=== PATIENT | male | born 1945 | race Caucasian/White ===

== ENCOUNTER → 2017-01-26 | Outpatient (CLI) | payer MEDICARE, BC, OTHER ==
[~2017-01-26] MED LIST: /DULO30CA OR; /ROPI1TA OR; ASPI81TA45 OR; CARB10TAXR OR; DYAZ37.5 OR; GLIM1TAB OR; METF500T4 OR; MOTRIN PO; NAPR250T PO; NASONEX; [UNRECOGNIZED DRUG - OTHER] PO; [UNRECOGNIZED DRUG - OTHER] PO; victoza INJ
--- NOTE | 2017-01-26 15:17 | REP ---
Left lower extremity duplex venous ultrasound with reflux evaluation: History: Venous insufficiency, question DVT and reflux. Findings: The deep veins are anechoic and fully compressible on two-dimensional scanning in the left lower extremity from the groin to the popliteal fossa. The femoral vein segment is duplicated in this patient. Color flow and spectral Doppler interrogation are unremarkable. There is no evidence of deep vein thrombosis. No reflux is seen in the superficial or deep system on reflex portion of the exam. The greater saphenous vein measures 6.9 mm in AP dimension at the saphenofemoral junction, 4.1 mm in AP dimension at midthigh level, and 4.0 mm in AP dimension at the level of the knee. The lesser saphenous vein measures 4.9 mm in AP dimension. Impression: No evidence of DVT. No reflux seen in the left lower extremity veins. Signed by Tk Reza MD 01/26/2017 05:39 P
== END ==
LOC: M RAD 10:35
PROVIDERS: ATTEND Surgery
DX: I87.312 Chronic venous hypertension (idiopathic) with ulcer of left lower extremity (principal)

== ENCOUNTER → 2017-01-31 | Outpatient (CLI) | payer MEDICARE, BC, OTHER ==
--- NOTE | 2017-01-31 11:31 | REP ---
RIGHT LOWER EXTREMITY DUPLEX DOPPLER VENOUS ULTRASOUND WITH EVALUATION FOR VENOUS REFLUX: Real-time compression and duplex Doppler interrogation of the right lower extremity deep vein system is performed. The right common, superficial femoral and popliteal veins are fully compressible with transducer pressure and demonstrate normal spontaneous and phasic flow without evidence of deep venous thrombosis. Evaluation for venous reflux is performed. No reflux was seen in the common femoral vein. There is no evidence of an anterior accessory greater saphenous vein. There is reflux in the greater saphenous vein at the saphenofemoral junction with duration of 3.5 seconds, AP diameter of that vessel 4 mm. There is reflux in the greater saphenous vein at the mid thigh with a duration of 5.0 seconds, AP diameter 5 mm. No reflux is seen in the greater saphenous vein at the level of the knee, AP diameter of that vessel 5 mm. No reflux was seen in the superficial femoral vein, popliteal vein or lesser saphenous vein. Lesser saphenous vein diameter is 2 mm. Perforating venous structures are seen communicating with the greater saphenous vein at the mid thigh level, with no reflux seen in these perforating venous structures. Signed by Rogers Dash MD 01/31/2017 03:30 P
== END ==
LOC: M RAD 09:24
PROVIDERS: ATTEND Surgery
DX: I87.311 Chronic venous hypertension (idiopathic) with ulcer of right lower extremity (principal)

== ENCOUNTER → 2017-03-29 | Outpatient (REF) | payer MEDICARE, OTHER ==
[2017-03-29 12:48] LABS: MEAN CORPUSCULAR HEMOGLOBIN 30.1 pg (27.0-33.0); MEAN CORPUSCULAR HGB CONC 33.5 g/dl (32.0-36.5); MEAN CORPUSCULAR VOLUME 89.9 fl (80.0-96.0); WHITE BLOOD COUNT 7.8 K/mm3 (4.0-10.0)
[2017-03-29 13:00] LABS: VITAMIN B12 LEVEL 716 PG/ML (247-911)
[2017-03-29 13:02] LABS: FOLATE > 24.0 NG/ML (>5.4)
[2017-03-29 13:06] LABS: ALBUMIN 3.7 GM/DL (3.2-5.2); ALKALINE PHOSPHATASE 118 U/L (45-117); ALT/SGPT 38 U/L (12-78); ANION GAP 7 MEQ/L (8-16); AST/SGOT 17 U/L (15-37); BILIRUBIN,TOTAL 0.2 MG/DL (0.2-1.0); BLOOD UREA NITROGEN 15 MG/DL (7-18); CARBON DIOXIDE LEVEL 29 MEQ/L (21-32); CHLORIDE LEVEL 103 MEQ/L (98-107); CHOLESTEROL LEVEL 171 MG/DL (<200); CREATININE FOR GFR 1.25 MG/DL (0.70-1.30); FERRITIN 11 NG/ML (26-388); GLOMERULAR FILTRATION RATE > 60.0 (>42); GLUCOSE, FASTING 322 MG/DL (83-110); PERCENT SATURATION 18.5 % (19.7-37.4); POTASSIUM SERUM 3.9 MEQ/L (3.5-5.1); SODIUM LEVEL 139 MEQ/L (136-145); TOTAL IRON BINDING CAPACITY 405 UG/DL (250-450); TOTAL PROTEIN 7.4 GM/DL (6.4-8.2); TRIGLYCERIDES LEVEL 118 MG/DL (<150)
== END ==
LOC: M SFHCADAM 09:16
PROVIDERS: ATTEND Family Medicine
DX: G47.33 Obstructive sleep apnea (adult) (pediatric) (principal); E11.628 Type 2 diabetes mellitus with other skin complications; E78.4 Other hyperlipidemia; Z98.84 Bariatric surgery status; Z79.899 Other long term (current) drug therapy
CPT/HCPCS: 80053; 80061; 82043; 82306; 82607; 82728; 82746; 83036; 83550; 85027; 90670; G0009; G0463

== ENCOUNTER → 2017-04-26 | Outpatient (CLI) | payer MEDICARE, OTHER ==
--- NOTE | 2017-04-26 11:58 | REP ---
RIGHT SHOULDER, FOUR VIEWS: HISTORY: Shoulder pain. There is no acute fracture or dislocation. There is narrowing of the acromioclavicular joint with associated osteophyte formation. A calcified density is present along the superolateral aspect of the head of the humerus. This represents ligamentous or tendon calcification. IMPRESSION: Degenerative change as described above. Signed by Silas Ortiz MD 04/26/2017 12:07 P
== END ==
LOC: M ADAMS 09:34
PROVIDERS: ATTEND Family Medicine
DX: M19.011 Primary osteoarthritis, right shoulder (principal)
CPT/HCPCS: 73030; G0463

== ENCOUNTER → 2017-07-04 | Outpatient (REF) | payer MEDICARE, OTHER ==
[2017-07-04 11:57] LABS: ANION GAP 8 MEQ/L (8-16); BLOOD UREA NITROGEN 16 MG/DL (7-18); CALCIUM LEVEL 9.3 MG/DL (8.8-10.2); CARBON DIOXIDE LEVEL 27 MEQ/L (21-32); CHLORIDE LEVEL 107 MEQ/L (98-107); CREATININE FOR GFR 1.26 MG/DL (0.70-1.30); GLOMERULAR FILTRATION RATE > 60.0 (>42); GLUCOSE, FASTING 163 MG/DL (83-110); POTASSIUM SERUM 4.5 MEQ/L (3.5-5.1); SODIUM LEVEL 142 MEQ/L (136-145)
== END ==
LOC: M SFHCCLAY 08:48
PROVIDERS: ATTEND Family Medicine
DX: E61.1 Iron deficiency (principal); Z79.899 Other long term (current) drug therapy

== ENCOUNTER → 2017-10-02 | Outpatient (REF) | payer MEDICARE, OTHER ==
[2017-10-02 19:36] LABS: BASO # 0.1 10^3/uL (0.0-0.2); BASO % 0.9 % (0.0-1.0); EOS # 0.7 10^3/uL (0.0-0.50); EOS % 8.4 % (0.0-3.0); IMMATURE GRANULOCYTE % 0.4 % (0-0); LYMPH # 1.5 10^3/uL (1.5-4.5); LYMPH % 17.4 % (24.0-44.0); MEAN CORPUSCULAR HEMOGLOBIN 30.5 pg (27.0-33.0); MEAN CORPUSCULAR HGB CONC 33.5 g/dl (32.0-36.5); MEAN CORPUSCULAR VOLUME 91.2 fl (80.0-96.0); MONO # 0.8 10^3/uL (0.0-0.8); MONO % 9.4 % (0.0-5.0); NEUTROPHILS # 5.4 10^3/uL (1.8-7.7); NEUTROPHILS % 63.5 % (36.0-66.0); PLATELET COUNT, AUTOMATED 191 10^3/uL (150-450); RED CELL DISTRIBUTION WIDTH 13.3 % (11.5-14.5); WHITE BLOOD COUNT 8.6 10^3/uL (4.0-10.0)
[2017-10-02 19:53] LABS: ALBUMIN 4.1 GM/DL (3.2-5.2); ALBUMIN/GLOBULIN RATIO 1.14 (1.00-1.93); ALKALINE PHOSPHATASE 89 U/L (45-117); ALT/SGPT 35 U/L (12-78); ANION GAP 5 MEQ/L (8-16); AST/SGOT 15 U/L (7-37); BILIRUBIN,TOTAL 0.3 MG/DL (0.2-1.0); BLOOD UREA NITROGEN 18 MG/DL (7-18); CALCIUM LEVEL 9.1 MG/DL (8.8-10.2); CARBON DIOXIDE LEVEL 29 MEQ/L (21-32); CHLORIDE LEVEL 106 MEQ/L (98-107); CREATININE FOR GFR 1.15 MG/DL (0.70-1.30); GLOMERULAR FILTRATION RATE > 60.0 (>42); GLUCOSE, FASTING 216 MG/DL (83-110); POTASSIUM SERUM 4.8 MEQ/L (3.5-5.1); SODIUM LEVEL 140 MEQ/L (136-145); TOTAL PROTEIN 7.7 GM/DL (6.4-8.2)
== END ==
LOC: M SFHCADAM 11:49
PROVIDERS: ATTEND Family Medicine
DX: R31.9 Hematuria, unspecified (principal); R19.7 Diarrhea, unspecified
CPT/HCPCS: 80053; 81001; 85025; 87086; G0463

== ENCOUNTER → 2017-10-07 | Outpatient (REF) | payer MEDICARE, OTHER | LOC: M SFHCADAM 15:35 | PROVIDERS: ATTEND Family Medicine | DX: R19.7 Diarrhea, unspecified (principal) ==

== ENCOUNTER → 2017-10-09 | Outpatient (REF) | payer MEDICARE, OTHER | LOC: M SFHCADAM 20:59 | PROVIDERS: ATTEND Family Medicine | DX: R31.9 Hematuria, unspecified (principal); R19.7 Diarrhea, unspecified ==

== ENCOUNTER → 2017-10-24 | Outpatient (REF) | payer MEDICARE, OTHER ==
[2017-10-24 20:30] LABS: CALCIUM LEVEL 8.7 MG/DL (8.8-10.2); CREATININE FOR GFR 1.44 MG/DL (0.70-1.30); GLOMERULAR FILTRATION RATE 51.6 (>42); POTASSIUM SERUM 4.9 MEQ/L (3.5-5.1)
== END ==
LOC: M SFHCADAM 14:06
PROVIDERS: ATTEND Physician Assistant
DX: E11.628 Type 2 diabetes mellitus with other skin complications (principal); R31.9 Hematuria, unspecified; Z12.11 Encounter for screening for malignant neoplasm of colon

== ENCOUNTER → 2017-10-26 | Outpatient (CLI) | payer MEDICARE, BC ==
--- NOTE | 2017-10-26 11:37 | REP ---
RENAL ULTRASOUND: Real-time sonographic evaluation of the kidneys performed. The kidneys are normal in size and echotexture, right kidney measuring 14.6 x 7.7 x 6.9 cm and left kidney 13.2 x 7.0 x 5.5 cm. There are multiple bilateral renal cysts. There is no hydronephrosis. Largest cyst on the right is inferior and measures 8.9 x 5.6 x 7.3 cm. There is an adjacent cyst measuring 7.9 x 6.2 x 5.8 cm which contains a calcification which measures 1 cm. Several other smaller cysts are seen in the right kidney. Largest cysts of the left kidney are superiorly 5.4 x 4.1 x 4.3 cm and inferiorly 4.0 x 3.9 x 4.0 cm. Several other smaller cysts are seen. Incidental note is made of gallstones in the gallbladder. IMPRESSION: No hydronephrosis. Multiple bilateral renal cysts. Gallstones incidentally noted in the gallbladder.
== END ==
LOC: M WHC 08:42
PROVIDERS: ATTEND Physician Assistant
DX: N17.9 Acute kidney failure, unspecified (principal); N28.1 Cyst of kidney, acquired

== ENCOUNTER → 2017-11-02 | Outpatient (REF) | payer MEDICARE, OTHER | LOC: M SMT 17:09 | PROVIDERS: ATTEND Nurse Practitioner Family | DX: R31.0 Gross hematuria (principal) ==

== ENCOUNTER → 2017-11-09 | Outpatient (CLI) | payer MEDICARE, BC, OTHER ==
[~2017-11-09] MED LIST changes: -/DULO30CA OR; -/ROPI1TA OR; -ASPI81TA45 OR; -CARB10TAXR OR; -DYAZ37.5 OR; -GLIM1TAB OR; +ISOVUE-370 76% 100ML VIAL (Q9967) As Ordered; -METF500T4 OR; -MOTRIN PO; -NAPR250T PO; -NASONEX; -[UNRECOGNIZED DRUG - OTHER] PO; -[UNRECOGNIZED DRUG - OTHER] PO; -victoza INJ
== END ==
LOC: M RAD 12:02
DX: R31.9 Hematuria, unspecified (principal)
CPT/HCPCS: Q9967

== ENCOUNTER → 2017-12-07 | Outpatient (CLI) | payer MEDICARE, BC, OTHER ==
[2017-12-07 14:49] LABS: HEMATOCRIT 44.6 % (42.0-52.0); HEMOGLOBIN 15.1 g/dl (14.0-18.0); MEAN CORPUSCULAR HEMOGLOBIN 30.4 pg (27.0-33.0); MEAN CORPUSCULAR HGB CONC 33.9 g/dl (32.0-36.5); MEAN CORPUSCULAR VOLUME 89.9 fl (80.0-96.0); PLATELET COUNT, AUTOMATED 177 10^3/uL (150-450); RED BLOOD COUNT 4.96 10^6/uL (4.30-6.10); RED CELL DISTRIBUTION WIDTH 12.6 % (11.5-14.5); WHITE BLOOD COUNT 9.3 10^3/uL (4.0-10.0)
[2017-12-07 14:58] LABS: APPEARANCE, URINE HAZY (CLEAR); BACTERIA, URINE AUTO NEGATIVE (NEGATIVE); BILIRUBIN, URINE AUTO NEGATIVE (NEGATIVE); BLOOD, URINE BLOOD 1+ (NEGATIVE); COLOR, URINE YELLOW (YELLOW); GLUCOSE, URINE (UA) AUTO 3+ mg/dL (NEGATIVE); KETONE, URINE AUTO TRACE mg/dL (NEGATIVE); LEUKOCYTE ESTERASE, URINE AUTO 1+ (NEGATIVE); NITRITE, URINE AUTO NEGATIVE (NEGATIVE); PROTEIN, URINE AUTO NEGATIVE (NEGATIVE); RBC, URINE AUTO 1 /HPF (0-3); SPECIFIC GRAVITY URINE AUTO 1.017 (1.002-1.035); SQUAMOUS EPITHELIAL CELL UR AU 0 /HPF (0-6); UROBILINOGEN, URINE AUTO 0.2 mg/dL (0.0-2.0); WBC, URINE AUTO 5 /HPF (0-3)
[2017-12-07 15:03] LABS: INR 0.98; PROTHROMBIN TIME 13.1 SECONDS (12.4-14.5)
[2017-12-07 15:04] LABS: PARTIAL THROMBOPLASTIN TIME 33.6 SECONDS (26.8-37.9)
[2017-12-07 15:55] LABS: ANION GAP 6 MEQ/L (8-16); BLOOD UREA NITROGEN 19 MG/DL (7-18); CALCIUM LEVEL 8.6 MG/DL (8.8-10.2); CARBON DIOXIDE LEVEL 30 MEQ/L (21-32); CHLORIDE LEVEL 106 MEQ/L (98-107); CREATININE FOR GFR 1.19 MG/DL (0.70-1.30); GLOMERULAR FILTRATION RATE > 60.0 (>42); GLUCOSE, FASTING 205 MG/DL (70-100); POTASSIUM SERUM 4.3 MEQ/L (3.5-5.1); PSA SCREENING 0.68 NG/ML (< 4.0); SODIUM LEVEL 142 MEQ/L (136-145)
== END ==
LOC: M SMT 13:03
DX: Z01.818 Encounter for other preprocedural examination (principal); N20.0 Calculus of kidney; Z12.5 Encounter for screening for malignant neoplasm of prostate; R91.8 Other nonspecific abnormal finding of lung field
CPT/HCPCS: 80048

== ENCOUNTER → 2017-12-11 | Outpatient (CLI) | payer MEDICARE, BC, OTHER | LOC: M RAD 17:29 | DX: R91.8 Other nonspecific abnormal finding of lung field (principal) | CPT/HCPCS: Q9967 ==

== ENCOUNTER 2017-12-28 06:14 | Day surgery (SDC) | payer MEDICARE, BC, OTHER ==
[2017-12-28] MEDS ORDERED: LIDOCAINE 1% MDV 20ML VIAL SQ (06:45)
[2017-12-28] MEDS: LR 1,000 ML IV (07:10)
[2017-12-28] MEDS ORDERED: PROPOFOL 200 MG/20 ML VIAL As Ordered ×2 (07:14→08:25)
[2017-12-28] MEDS ORDERED: MIDAZOLAM INJ 2 MG/2 ML VIAL (J2250) As Ordered (07:14)
[2017-12-28] MEDS ORDERED: LIDOCAINE 2% INJ 100 MG/5 ML SDV (FOR ANES.) As Ordered (07:14)
[2017-12-28] MEDS ORDERED: fentaNYL 100 MCG/2 ML INJECTION (J3010) As Ordered (07:15)
[2017-12-28 07:18] LABS: BEDSIDE GLUCOSE 129 MG/DL (83-110)
[2017-12-28] MEDS: CEFAZOLIN SOD 1 GM in APPROPRIATE DILUENT 1 EA IV (07:31)
[2017-12-28] MEDS ORDERED: LR 1,000 ML IV (09:15)
[2017-12-28] MEDS ORDERED: PERCOCET 5MG/325MG TAB PO (09:15)
[2017-12-28] MEDS ORDERED: ONDANSETRON 4MG/2ML VIAL (J2405) IV (09:15)
[2017-12-28] MEDS ORDERED: fentaNYL 100 MCG/2 ML INJECTION (J3010) IV (09:15)
[2017-12-28] MEDS ORDERED: HYDROmorphone HCL 1 MG/ML SYRINGE (J1170) IV (09:15)
== END 2017-12-28 09:30 | disposition home or self-care (01) ==
LOC: M SDC 06:14
DX: N20.0 Calculus of kidney (principal); I10 Essential (primary) hypertension; E11.40 Type 2 diabetes mellitus with diabetic neuropathy, unspecified; E11.628 Type 2 diabetes mellitus with other skin complications; I87.311 Chronic venous hypertension (idiopathic) with ulcer of right lower extremity; I87.2 Venous insufficiency (chronic) (peripheral); G47.33 Obstructive sleep apnea (adult) (pediatric); G25.81 Restless legs syndrome; G63 Polyneuropathy in diseases classified elsewhere; E78.4 Other hyperlipidemia; E29.1 Testicular hypofunction; M12.9 Arthropathy, unspecified; R06.83 Snoring; Z91.013 Allergy to seafood; Z91.048 Other nonmedicinal substance allergy status; Z79.899 Other long term (current) drug therapy; Z79.82 Long term (current) use of aspirin; Z79.4 Long term (current) use of insulin; Z79.84 Long term (current) use of oral hypoglycemic drugs; Z98.84 Bariatric surgery status
CPT/HCPCS: 50590

== ENCOUNTER → 2018-01-19 | Outpatient (CLI) | payer MEDICARE, BC, OTHER | LOC: M SMT 09:13 | DX: N20.0 Calculus of kidney (principal) | CPT/HCPCS: 82360 ==

== ENCOUNTER → 2018-02-07 | Outpatient (REF) | payer MEDICARE, OTHER ==
[2018-02-07 19:45] LABS: HEMATOCRIT 45.2 % (42.0-52.0); HEMOGLOBIN 14.9 g/dl (14.0-18.0); MEAN CORPUSCULAR HEMOGLOBIN 30.2 pg (27.0-33.0); MEAN CORPUSCULAR VOLUME 91.7 fl (80.0-96.0); PLATELET COUNT, AUTOMATED 202 10^3/uL (150-450); RED BLOOD COUNT 4.93 10^6/uL (4.30-6.10); RED CELL DISTRIBUTION WIDTH 13.4 % (11.5-14.5); WHITE BLOOD COUNT 6.7 10^3/uL (4.0-10.0)
[2018-02-07 19:57] LABS: ALBUMIN 3.7 GM/DL (3.2-5.2); ALBUMIN/GLOBULIN RATIO 1.09 (1.00-1.93); ALKALINE PHOSPHATASE 84 U/L (45-117); ALT/SGPT 30 U/L (12-78); ANION GAP 5 MEQ/L (8-16); AST/SGOT 21 U/L (7-37); BILIRUBIN,TOTAL 0.4 MG/DL (0.2-1.0); BLOOD UREA NITROGEN 21 MG/DL (7-18); CALCIUM LEVEL 8.9 MG/DL (8.8-10.2); CARBON DIOXIDE LEVEL 29 MEQ/L (21-32); CHLORIDE LEVEL 106 MEQ/L (98-107); CREATININE FOR GFR 1.33 MG/DL (0.70-1.30); GLOMERULAR FILTRATION RATE 56.4 (>42); GLUCOSE, FASTING 246 MG/DL (70-100); POTASSIUM SERUM 4.8 MEQ/L (3.5-5.1); SODIUM LEVEL 140 MEQ/L (136-145); TOTAL PROTEIN 7.1 GM/DL (6.4-8.2)
[2018-02-07 20:16] LABS: ESTIMATED AVERAGE GLUCOSE 192 MG/DL (60-110); HEMOGLOBIN A1c 8.3 %
== END ==
LOC: M SFHCADAM 14:14
DX: E11.628 Type 2 diabetes mellitus with other skin complications (principal); Z12.11 Encounter for screening for malignant neoplasm of colon
CPT/HCPCS: 80053

== ENCOUNTER → 2018-05-30 | Outpatient (REF) | payer MEDICARE, OTHER ==
[2018-05-30 12:36] LABS: HEMATOCRIT 44.3 % (42.0-52.0); HEMOGLOBIN 15.2 g/dl (13.5-17.5); MEAN CORPUSCULAR HGB CONC 34.3 g/dl (32.0-36.5); MEAN CORPUSCULAR VOLUME 90.4 fl (80.0-96.0); PLATELET COUNT, AUTOMATED 186 10^3/uL (150-450); RED CELL DISTRIBUTION WIDTH 12.6 % (11.5-14.5); WHITE BLOOD COUNT 8.7 10^3/uL (4.0-10.0)
[2018-05-30 13:01] LABS: ALBUMIN 3.8 GM/DL (3.2-5.2); ALBUMIN/GLOBULIN RATIO 1.06 (1.00-1.93); ALKALINE PHOSPHATASE 96 U/L (45-117); ALT/SGPT 38 U/L (12-78); ANION GAP 9 MEQ/L (8-16); AST/SGOT 22 U/L (7-37); BILIRUBIN,TOTAL 0.4 MG/DL (0.2-1.0); BLOOD UREA NITROGEN 22 MG/DL (7-18); CALCIUM LEVEL 8.8 MG/DL (8.8-10.2); CARBON DIOXIDE LEVEL 29 MEQ/L (21-32); CHLORIDE LEVEL 106 MEQ/L (98-107); CHOLESTEROL LEVEL 160 MG/DL (<200); CHOLESTEROL RISK RATIO 3.018 (<5); CREATININE FOR GFR 1.26 MG/DL (0.70-1.30); FERRITIN 34 NG/ML (26-388); GLOMERULAR FILTRATION RATE > 60.0 (>42); GLUCOSE, FASTING 89 MG/DL (70-100); HDL CHOLESTEROL 53 MG/DL (>40); IRON (FE) 143 UG/DL (65-175); LDL CHOLESTEROL 85.6 MG/DL (<100); NON-HDL-C 107 MG/DL; PERCENT SATURATION 41.6 % (19.7-50.0); SODIUM LEVEL 144 MEQ/L (136-145); TOTAL IRON BINDING CAPACITY 344 UG/DL (250-450); TOTAL PROTEIN 7.4 GM/DL (6.4-8.2); TRIGLYCERIDES LEVEL 107 MG/DL (<150)
[2018-05-30 13:06] LABS: MAU/CREAT RATIO 160.7 MCG/MG (0.0-30.0)
[2018-05-30 13:25] LABS: TOTAL 25(OH) VITAMIN D 39.4 NG/ML (30.0-100.0); VITAMIN B12 LEVEL 1317 PG/ML (247-911)
[2018-05-30 13:29] LABS: ESTIMATED AVERAGE GLUCOSE 197 MG/DL (60-110); HEMOGLOBIN A1c 8.5 %
== END ==
LOC: M SFHCADAM 09:42
DX: Z98.84 Bariatric surgery status (principal); G47.33 Obstructive sleep apnea (adult) (pediatric); E11.628 Type 2 diabetes mellitus with other skin complications; E78.4 Other hyperlipidemia; Z68.41 Body mass index [BMI] 40.0-44.9, adult; Z23 Encounter for immunization
CPT/HCPCS: 83550

== ENCOUNTER → 2019-07-12 | Outpatient (REF) | payer MEDICARE, OTHER ==
[~2019-07-12] MED LIST changes: +ASPI81TA26 PO; +ASPI81TA45 OR; +ATOR1TAB21 PO; +B121000T PO; +CALC1TAB42 PO; +CARB1TAB20 PO; +CENT1TAB20 PO; +CYMB1CAP5 PO; +DYAZ37.5 OR; +FURO20TA2 PO; +GLIM1TAB OR; +INSULANT SC; +IRON27TA2 PO; -ISOVUE-370 76% 100ML VIAL (Q9967) As Ordered; +JARD1TAB3 PO; +METF10004 PO; +METF500T4 OR; +MOTRIN PO; +NAPR250T PO; +NASONEX; +REQU1TAB16 OR; +TEGR100T3 PO; +TRAZ-163 PO; +[UNRECOGNIZED DRUG - CODE] PO; +[UNRECOGNIZED DRUG - CODE] TD; +[UNRECOGNIZED DRUG - OTHER] PO; +[UNRECOGNIZED DRUG - OTHER] PO; +[UNRECOGNIZED DRUG - OTHER] PO; +victoza INJ
[2019-07-12 19:47] LABS: HEMATOCRIT 45.7 % (42.0-52.0); HEMOGLOBIN 15.7 g/dl (13.5-17.5); MEAN CORPUSCULAR HEMOGLOBIN 31.4 pg (27.0-33.0); MEAN CORPUSCULAR HGB CONC 34.4 g/dl (32.0-36.5); MEAN CORPUSCULAR VOLUME 91.4 fl (80.0-96.0); PLATELET COUNT, AUTOMATED 175 10^3/uL (150-450); WHITE BLOOD COUNT 8.5 10^3/uL (4.0-10.0)
[2019-07-12 20:09] LABS: ALBUMIN 3.8 GM/DL (3.2-5.2); ALT/SGPT 34 U/L (12-78); BILIRUBIN,TOTAL 0.3 MG/DL (0.2-1.0); BLOOD UREA NITROGEN 27 MG/DL (7-18); CALCIUM LEVEL 8.7 MG/DL (8.8-10.2); CARBON DIOXIDE LEVEL 27 MEQ/L (21-32); CHLORIDE LEVEL 108 MEQ/L (98-107); CREATININE FOR GFR 1.22 MG/DL (0.70-1.30); FREE T4 0.75 NG/DL (0.76-1.46); GLOMERULAR FILTRATION RATE > 60.0 (>42); GLUCOSE, FASTING 190 MG/DL (70-100); MAGNESIUM LEVEL 2.2 MG/DL (1.8-2.4); SODIUM LEVEL 141 MEQ/L (136-145); TOTAL PROTEIN 7.2 GM/DL (6.4-8.2)
[2019-07-12 20:10] LABS: FOLATE 22.4 NG/ML; VITAMIN B12 LEVEL 891 PG/ML
[2019-07-12 20:34] LABS: HEMOGLOBIN A1c 10.3 %
== END ==
LOC: M SFHCADAM 16:00
PROVIDERS: ATTEND Physician Assistant
DX: R42 Dizziness and giddiness (principal); E11.628 Type 2 diabetes mellitus with other skin complications; R60.9 Edema, unspecified; R26.81 Unsteadiness on feet

== ENCOUNTER → 2019-07-26 | Outpatient (CLI) | payer MEDICARE, BC, OTHER ==
--- NOTE | 2019-07-26 12:50 | REP ---
MRI of the brain without and with contrast Indication: Vertigo. Comparison: None Technique: Multi planar multi sequence MRI of the brain was performed without and with contrast. A total of 20 ml of ProHance was administered intravenously. Findings: There is patient motion artifact which degrades image quality and decreases the sensitivity for detection of small lesions. Within this limitation, there is no abnormal enhancement. There is no restricted diffusion to suggest acute ischemia or infarction. The ventricles and sulci are symmetric. There is no intra- or extra-axial fluid collection. There is no mass effect. There is no midline shift or basal cistern effacement. The visualized flow voids are preserved. There is mild mucosal thickening of the right maxillary and frontal sinuses and bilateral ethmoid air cells. The visualized mastoid air cells are clear. There is cervical spondylosis. Impression: Patient motion artifact which degrades image quality and decreases the sensitivity for the detection of small lesions. Within this limitation, no abnormal enhancement. No acute intracranial abnormality. Mild mucosal thickening of the paranasal sinuses. Electronically Signed by Solo Otto MD 07/26/2019 12:42 P
== END ==
LOC: M PLARAD 10:06
PROVIDERS: ATTEND Physician Assistant
DX: R42 Dizziness and giddiness (principal); R26.81 Unsteadiness on feet; M47.812 Spondylosis without myelopathy or radiculopathy, cervical region; J32.0 Chronic maxillary sinusitis; J32.1 Chronic frontal sinusitis; J32.2 Chronic ethmoidal sinusitis

== ENCOUNTER → 2020-01-13 | Outpatient (CLI) | payer MEDICARE, BC, OTHER ==
[~2020-01-13] MED LIST changes: -TRAZ-163 PO; +TRAZ-257 PO
--- NOTE | 2020-01-13 11:21 | REP ---
LUMBOSACRAL SPINE SERIES: Five views of the lumbosacral spine performed and compared to a prior study of 04/12/2016. There is moderate diffuse spurring and moderate diffuse disc space narrowing at all levels with subchondral sclerosis. There is vacuum phenomenon at L4-5 and L5-S1. There is mild retrolisthesis of L2. Chronic compression deformities are again noted of L2 and L3, with the compression of L2 more significant on the left side. There is moderate right thoracolumbar curvature with a rotatory component. Posterior elements appear intact. IMPRESSION: Diffuse degenerative changes with right thoracolumbar scoliosis and compression deformity of L2 all unchanged since prior study of 04/12/2016. There is mild retrolisthesis of L2 unchanged. Electronically Signed by Rogers Dash MD 01/13/2020 01:27 P
== END ==
LOC: M WUC 10:20
PROVIDERS: ATTEND Nurse Practitioner Family
DX: M41.35 Thoracogenic scoliosis, thoracolumbar region (principal); G95.20 Unspecified cord compression

== ENCOUNTER → 2020-02-18 | Outpatient (REF) | payer MEDICARE, OTHER ==
[2020-02-18 17:07] LABS: ALBUMIN 3.8 GM/DL (3.2-5.2); BILIRUBIN,TOTAL 0.2 MG/DL (0.2-1.0); CREATININE FOR GFR 1.29 MG/DL (0.70-1.30); GLOMERULAR FILTRATION RATE 58.1 (>42); POTASSIUM SERUM 4.5 MEQ/L (3.5-5.1); TOTAL PROTEIN 7.4 GM/DL (6.4-8.2)
[2020-02-18 17:21] LABS: HEMOGLOBIN A1c 8.8 %
== END ==
LOC: M SFHCADAM 14:40
PROVIDERS: ATTEND Family Medicine
DX: I10 Essential (primary) hypertension (principal); E11.628 Type 2 diabetes mellitus with other skin complications
CPT/HCPCS: 80053; 83036; G0463

== ENCOUNTER → 2020-02-25 | Outpatient (CLI) | payer MEDICARE, BC, OTHER ==
--- NOTE | 2020-02-25 15:51 | REPVR ---
PROCEDURE INFORMATION: Exam: MR Lumbar Spine Without Contrast. Exam date and time: 02/25/2020 2:47 PM Age: 74 years old Clinical indication: Low back pain; Additional info: Disc degeneration w/ myelopathy TECHNIQUE: Imaging protocol: Multiplanar magnetic resonance images of the lumbar spine without intravenous contrast. COMPARISON: CR SPINE LS COMPLETE 01/13/2020 10:32 AM FINDINGS: Vertebrae: A right convex spinal curve is observed. There has been previous posterior unroofing at L4 and L5. There is previous left-sided wedging of L2 with no evidence of bone marrow edema. Spinal cord: The conus medullaris is normal. T12-L1: There are chronic degenerative changes at T12-L1 with mild prominence of the annulus. There is no nerve root compression. L1-L2: There is mild prominence of the annulus at L1-L2 with moderate left facet arthropathy. There is no nerve root compression. L2-L3: There is moderate disc osteophytic pathology at L2-L3 and moderate facet arthropathy with mild left foraminal compromise. There appears to be moderate subarticular stenosis with no fat in the lateral recesses on axial image 701:18. L3-L4: There is mild disc osteophytic disease at L3-L4 with moderate right facet arthropathy and foraminal compromise. There appears to be moderate right and mild left subarticular stenosis. L4-L5: There is moderate disc osteophytic disease at L4-L5 with mild caudal extrusion of the annulus. There is severe right and moderate left facet arthropathy. There is moderate right and mild left foraminal compromise. There is adequate fluid surrounding the nerve root centrally with evidence of previous unroofing. L5-S1: There is chronic disc osteophytic disease at L5-S1 greater on the right. There is moderate bilateral facet arthropathy. There is severe right and moderate left foraminal stenosis and severe bilateral subarticular stenosis on sagittal images which appears more severe on the left on axial images. Soft tissues: Unremarkable. IMPRESSION: 1. There are chronic degenerative changes at T12-L1 with mild prominence of the annulus. There is no nerve root compression. 2. There is mild prominence of the annulus at L1-L2 with moderate left facet arthropathy. There is no nerve root compression. 3. There is moderate disc osteophytic pathology at L2-L3 and moderate facet arthropathy with mild left foraminal compromise. There appears to be moderate subarticular stenosis with no fat in the lateral recesses on axial image 701:18. 4. There is mild disc osteophytic disease at L3-L4 with moderate right facet arthropathy and foraminal compromise. There appears to be moderate right and mild left subarticular stenosis. 5. There is moderate disc osteophytic disease at L4-L5 with mild caudal extrusion of the annulus. There is severe right and moderate left facet arthropathy. There is moderate right and mild left foraminal compromise. There is adequate fluid surrounding the nerve root centrally with evidence of previous unroofing. 6. There is chronic disc osteophytic disease at L5-S1 greater on the right. There is moderate bilateral facet arthropathy. There is severe right and moderate left foraminal stenosis and severe bilateral subarticular stenosis on sagittal images which appears more severe on the left on axial images. Electronically signed by: Raghu Ignacio On 02/25/2020 15:50:55 PM
== END ==
LOC: M RAD 13:27
PROVIDERS: ATTEND Family Medicine
DX: M51.05 Intervertebral disc disorders with myelopathy, thoracolumbar region (principal); M51.06 Intervertebral disc disorders with myelopathy, lumbar region; M25.78 Osteophyte, vertebrae

== ENCOUNTER → 2020-07-15 | Outpatient (REF) | payer MEDICARE, OTHER ==
[2020-07-15 14:29] LABS: BASO # 0.1 10^3/uL (0.0-0.2); BASO % 0.7 % (0.0-1.0); EOS # 0.6 10^3/uL (0.0-0.5); EOS % 7.6 % (0.0-3.0); HEMATOCRIT 47.9 % (42.0-52.0); HEMOGLOBIN 15.4 g/dl (13.5-17.5); LYMPH # 1.6 10^3/uL (1.5-5.0); LYMPH % 21.4 % (24.0-44.0); MEAN CORPUSCULAR HEMOGLOBIN 29.8 pg (27.0-33.0); MEAN CORPUSCULAR HGB CONC 32.2 g/dl (32.0-36.5); MEAN CORPUSCULAR VOLUME 92.8 fl (80.0-96.0); MONO # 0.7 10^3/uL (0.0-0.8); MONO % 9.7 % (0.0-5.0); NEUTROPHILS # 4.6 10^3/uL (1.5-8.5); NEUTROPHILS % 60.1 % (36.0-66.0); PLATELET COUNT, AUTOMATED 188 10^3/uL (150-450); RED BLOOD COUNT 5.16 10^6/uL (4.30-6.10); WHITE BLOOD COUNT 7.6 10^3/uL (4.0-10.0)
[2020-07-15 15:00] LABS: APPEARANCE, URINE CLEAR (CLEAR); BACTERIA, URINE AUTO NEGATIVE (NEGATIVE); BILIRUBIN, URINE AUTO NEGATIVE (NEGATIVE); BLOOD, URINE BLOOD 1+ (NEGATIVE); COLOR, URINE YELLOW (YELLOW); GLUCOSE, URINE (UA) AUTO 3+ mg/dL (NEGATIVE); KETONE, URINE AUTO NEGATIVE (NEGATIVE); LEUKOCYTE ESTERASE, URINE AUTO NEGATIVE (NEGATIVE); NITRITE, URINE AUTO NEGATIVE (NEGATIVE); PROTEIN, URINE AUTO NEGATIVE (NEGATIVE); RBC, URINE AUTO 0 /HPF (0-3); SPECIFIC GRAVITY URINE AUTO 1.018 (1.002-1.035); SQUAMOUS EPITHELIAL CELL UR AU 0 /HPF (0-6); UROBILINOGEN, URINE AUTO 0.2 mg/dL (0.0-2.0); WBC, URINE AUTO 1 /HPF (0-3)
[2020-07-15 15:23] LABS: ALBUMIN 3.7 GM/DL (3.2-5.2); BILIRUBIN,TOTAL 0.3 MG/DL (0.2-1.0); CALCIUM LEVEL 8.9 MG/DL (8.8-10.2); CREATININE FOR GFR 1.35 MG/DL (0.70-1.30); GLOMERULAR FILTRATION RATE 55.2 (>42); POTASSIUM SERUM 4.9 MEQ/L (3.5-5.1); TOTAL PROTEIN 7.1 GM/DL (6.4-8.2)
== END ==
LOC: M LABDRWAD 12:26
PROVIDERS: ATTEND Family Medicine
DX: I25.9 Chronic ischemic heart disease, unspecified (principal); N02.9 Recurrent and persistent hematuria with unspecified morphologic changes; E11.9 Type 2 diabetes mellitus without complications; Z79.899 Other long term (current) drug therapy

== ENCOUNTER → 2020-08-14 | Outpatient (REF) | payer MEDICARE, OTHER ==
[2020-08-14 16:45] LABS: CALCIUM LEVEL 8.9 MG/DL (8.8-10.2); CREATININE FOR GFR 1.31 MG/DL (0.70-1.30); GLOMERULAR FILTRATION RATE 57.1 (>42); POTASSIUM SERUM 4.5 MEQ/L (3.5-5.1)
[2020-08-14 17:00] LABS: HEMOGLOBIN A1c 8.7 %
== END ==
LOC: M SFHCADAM 14:27
PROVIDERS: ATTEND Family Medicine
DX: E11.628 Type 2 diabetes mellitus with other skin complications (principal)

== ENCOUNTER 2021-04-14 15:57 | Inpatient (IN) | payer MEDICARE, BC, OTHER ==
[~2021-04-14] VITALS: Ht 182.9 cm; Wt 121.8 kg
[2021-04-14] MEDS ORDERED: NS 1,000 ML IV SCH (16:25)
[2021-04-14 17:28] LABS: BASO # 0.1 10^3/uL (0.0-0.2); BASO % 0.3 % (0.0-1.0); EOS # 0.2 10^3/uL (0.0-0.5); EOS % 1.6 % (0.0-3.0); HEMATOCRIT 40.7 % (42.0-52.0); HEMOGLOBIN 13.5 g/dl (13.5-17.5); LYMPH # 0.8 10^3/uL (1.5-5.0); LYMPH % 5.4 % (24.0-44.0); MEAN CORPUSCULAR HEMOGLOBIN 29.7 pg (27.0-33.0); MEAN CORPUSCULAR HGB CONC 33.2 g/dl (32.0-36.5); MEAN CORPUSCULAR VOLUME 89.5 fl (80.0-96.0); MONO # 1.8 10^3/uL (0.0-0.8); MONO % 11.9 % (2.0-8.0); NEUTROPHILS # 11.7 10^3/uL (1.5-8.5); NEUTROPHILS % 78.6 % (36.0-66.0); PLATELET COUNT, AUTOMATED 194 10^3/uL (150-450); RED BLOOD COUNT 4.55 10^6/uL (4.30-6.10)
[2021-04-14 17:33] LABS: ALBUMIN 2.4 GM/DL (3.2-5.2); BILIRUBIN,DIRECT 0.2 MG/DL (0.0-0.2); BILIRUBIN,TOTAL 0.5 MG/DL (0.2-1.0); TOTAL PROTEIN 5.9 GM/DL (6.4-8.2)
[2021-04-14] MEDS ORDERED: ISOVUE-370 76% 100ML VIAL As Ordered ONE (17:33)
[2021-04-14 17:54] LABS: WHITE BLOOD COUNT 14.9 10^3/uL (4.0-10.0)
--- NOTE | 2021-04-14 18:44 | REPVR ---
PROCEDURE INFORMATION: Exam: CT Abdomen And Pelvis With Contrast Exam date and time: 04/14/2021 5:46 PM Age: 75 years old Clinical indication: Abdominal pain; Additional info: Abdominal pain; R/O obstruction TECHNIQUE: Imaging protocol: Computed tomography of the abdomen and pelvis with contrast. Radiation optimization: All CT scans at this facility use at least one of these dose optimization techniques: automated exposure control; mA and/or kV adjustment per patient size (includes targeted exams where dose is matched to clinical indication); or iterative reconstruction. Contrast material: ISO 370; Contrast volume: 100 ml; Contrast route: INTRAVENOUS (IV); COMPARISON: CT ABD PELVIS W/O FOL BY WIT 11/09/2017 12:25 PM FINDINGS: Liver: Normal. No mass. Gallbladder and bile ducts: Multiple gallstones are present, with marked inflammatory change and pericholecystic fluid present in the gallbladder fossa consistent with moderately severe acute cholecystitis. The biliary ducts appear normal. No evidence of choledocholithiasis. Pancreas: Normal. No ductal dilation. Spleen: Normal. No splenomegaly. Adrenal glands: Normal. No mass. Kidneys and ureters: Comparison to the previous CT abdomen and pelvis exam from 11/09/2017 shows a marked interval increase in size of the multiple hypodense cortical masses, likely cysts in both kidneys. The largest in the right kidney measures 10.1 cm in size and this measured 6.4 cm in size on the previous CT exam. No hydronephrosis. Stomach and bowel: Prior gastric sleeve surgery with no apparent complication. No obstruction. No mucosal thickening. Appendix: No evidence of appendicitis. Intraperitoneal space: Unremarkable. No free air. No significant fluid collection. Vasculature: Unremarkable. No abdominal aortic aneurysm. Lymph nodes: Unremarkable. No enlarged lymph nodes. Urinary bladder: Unremarkable as visualized. Reproductive: Unremarkable as visualized. Bones/joints: No acute fractures. Chronic anterior wedge compression fractures of the superior and inferior vertebral body endplates of L2 are present with central height loss of up to 40%. There is acute kyphosis at the L1/L2 level together with chronic degenerative discovertebral disease at T12 through S1 with diminished disc height, vacuum disc phenomenon and endplate osteophytosis. Dextroscoliosis of the lumbar spine is present, apex at L1/L2. Prior posterior laminectomies of the L4 and L5 vertebral bodies have been performed. Soft tissues: Unremarkable. IMPRESSION: 1. Multiple gallstones are present, with marked inflammatory change and pericholecystic fluid present in the gallbladder fossa consistent with moderately severe acute cholecystitis. The biliary ducts appear normal. No evidence of choledocholithiasis. 2. Comparison to the previous CT abdomen and pelvis exam from 11/09/2017 shows a marked interval increase in size of the multiple hypodense cortical masses, likely cysts in both kidneys. The largest in the right kidney measures 10.1 cm in size and this measured 6.4 cm in size on the previous CT exam. No hydronephrosis. The renal masses are likely benign simple cysts with hairline thin hou without septa or solid components. The internal attenuation of these presumed cysts is low, less than 20 Hounsfield units.No further workup recommended. Reference: Mary TURNER, Management of the Incidental Renal Mass on CT: A White Paper of the ACR Incidental Findings Committee, J Am Di Radiol 2018. 3. Prior gastric sleeve surgery with no apparent complication. No obstruction. No mucosal thickening. 4. No acute fractures. Chronic anterior wedge compression fractures of the superior and inferior vertebral body endplates of L2 are present, however, with central height loss of up to 40%. There is acute kyphosis at the L1/L2 level together with chronic degenerative discovertebral disease at T12 through S1 with diminished disc height, vacuum disc phenomenon and endplate osteophytosis. Dextroscoliosis of the lumbar spine is present, apex at L1/L2. Prior posterior laminectomies of the L4 and L5 vertebral bodies have been performed. COMMENTS: Consistent with the [employer]'s Incidental Findings Committee white paper (J Am Di Radiol 2018): Any incidental renal lesion less than 1 cm or classified as too small to characterize, or any incidental cystic renal lesion characterized as simple-appearing, is likely benign. No follow-up imaging is recommended for these lesions per consensus recommendations based on imaging criteria. Electronically signed by: Ronny Cooper On 04/14/2021 18:44:00 PM
[2021-04-14] MEDS ORDERED: PIPERACILLIN/TAZOBACTAM SOD 3.375 GM in D5W MINI-BAG PLUS 50 ML IV ONE (19:20)
[2021-04-14 20:20] LABS: RSV AMPLIFICATION NEGATIVE (NEGATIVE)
[2021-04-14] MEDS ORDERED: DEXTROSE 50% 50 ML SYRINGE IV PRN (20:30)
[2021-04-14] MEDS ORDERED: GLUCOSE 4GM CHEW TABLET PO PRN (20:30)
[2021-04-14] MEDS ORDERED: GLUCAGON INJ 1MG VIAL SC PRN (20:30)
[2021-04-14 20:59] LABS: CREATININE FOR GFR 1.39 MG/DL (0.70-1.30); GLOMERULAR FILTRATION RATE 53.2 (>42); MAGNESIUM LEVEL 2.1 MG/DL (1.8-2.4); POTASSIUM SERUM 3.5 MEQ/L (3.5-5.1)
[2021-04-14 21:00] VITALS: BP 128/73
[2021-04-15] MEDS ORDERED: HumaLOG INSULIN (NovoLOG) PER UNIT SC SCH
--- NOTE | 2021-04-15 03:08 | HPEPDOC ---
General Date of Admission 04/14/21 Date of Service: Apr 14, 2021 Chief Complaint The patient is a 75-year-old male admitted with a reason for visit of N/V. Source: Patient, RN/MD Exam Limitations: No limitations Timing/Duration: Getting worse Associated Symptoms: Loss of appetite, Malaise History of Present Illness Mr. 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 His abdominal/pelvic CT shows multiple gallstones present with the gallbladder having pericholecystic fluid which corresponds with acute cholecystitis. The cysts in bilateral kidneys have increased in size with the Right kidney measuring 10.1 cm which is significant when compared to his previous CT 11/09/17, when the Right kidney measured 6.4 cm (no hydronephrosis observed). Patients total WBC is 14.9, absolute neutrophil count 78.6, Na 135, BUN 22, serum creatinine 1.39 (acute FRANKIE), fasting glucose 194, with elevated alkaline phosphatase 148. Due to patients chronic co- morbidities, ER provider speaking with Dr. Sarah, and patients laboratory and imaging results, he will be admitted to Medical-Surgical unit, NPO, for Acute Cholecystitis, FRANKIE with IV antibiotics and IV re-hydration. Home Medications Scheduled (Centrum Silver 50+Men) 1 Tab Tab, 1 TAB PO DAILY, (Reported) Aspirin (Aspirin EC) 81 Mg Tab, 81 MG PO DAILY, (Reported) Atorvastatin Calcium (Atorvastatin Calcium) 20 Mg Tab, 20 MG PO DAILY, (Reported) Calcium Carbonate/Vitamin D3 (Calcium 500-Vit D3 600 Tablet) 1 Tab Tab, 1 TAB PO BID, (Reported) Carbamazepine (Tegretol-Xr) 100 Mg Tab, 200 MG PO QAM, (Reported) Carbamazepine (Carbamazepine) 200 Mg Tab, 400 MG PO QHS, (Reported) Cholecalciferol (Vitamin D3) 5,000 Unit Chw, 5,000 UNIT PO DAILY, (Reported) Cyanocobalamin (Vitamin B-12) (Vitamin B-12) 1,000 Mcg Tab, 1,000 MCG PO DAILY, (Reported) Duloxetine Hcl (Cymbalta) 30 Mg Cap, 60 MG PO BID, (Reported) Empagliflozin (Jardiance) 25 Mg Tab, 25 MG PO QAM, (Reported) Ferrous Gluconate (Iron) 27 Mg Tab, 27 MG PO DAILY, (Reported) Furosemide (Furosemide) 20 Mg Tab, 20 MG PO DAILYPRN, (Reported) Insulin Glargine (Lantus) 1 Units/0.01 Ml Susp, 40 UNITS SC QAM, (Reported) Metformin HCl (Metformin HCl) 1,000 Mg Tab, 1,000 MG PO BID, (Reported) Ropinirole Hcl (Requip) 1 Mg Tab, 2 MG OR TID, (Reported) Rotigotine (Neupro) 8 Mg/24 Hr Dis, 8 MG TD DAILY, (Reported) Vit B12/Levomefolate/Vit B6/B2 (l-Methyl-Mc Tablet) 1 Tab Tab, 1 TAB PO QAM, (Reported) Scheduled PRN Mometasone Furoate Monohydrate (Nasonex) 1 [place], 2 SPRAY NA DAILYPRN PRN for NASAL DRYNESS, (Reported) Trazodone HCl (Trazodone HCl) 100 Mg Tab, 100 MG PO Q6HP PRN for PAIN, (Report ed) Allergies Coded Allergies: shellfish derived (Verified Allergy, Severe, ANAPHYLAXIS, 04/14/21) iodine (Verified Allergy, Unknown, 04/14/21) Past Medical History Medical History DM 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 Family History Significant Family History: No pertinent family hx Social History * Smoker: Denies Alcohol: occationally Drugs: denies Psychosocial History: No pertinent psych hx A-FIB/CHADSVASC A-FIB History Current/History of A-Fib/PAF?: No Review of Systems Constitutional: Reports: Malaise, Weakness, Fatigue, Weight Loss Eyes: Denies: Pain, Vision change, Conjunctivae inflammation, Eyelid inflammation, Redness, Other Skin: Denies: Rash, Lesions, Jaundice, Bruising, Itching, Dry, Breakdown, Nail Changes, Other Pulmonary: Denies: Dyspnea, Cough, Pleuritic Chest Pain, Other Symptoms Cardiovascular: Reports: Lt Headedness Gastrointestinal: Reports: Nausea, Abdominal Pain, Diarrhea Genitourinary: Denies: Dysuria, Frequency, Incontinence, Hematuria, Retention, Other Symptoms Hematologic: Denies: Bruising, Bleeding Excessively, Petecchia, Purpura, Enlarged Lymph Nodes, Other Hematologic Endocrine: Denies: Polydipsia, Polyphagia, Polyuria, Heat Intolerance, Cold Intolerance, Other Endocrine Sx Musculoskeletal: Reports: Back Pain Neurological: Reports: Weakness, Incoordination Psych: Reports: Mood Normal Physical Examination General Exam: Positive: Alert, Cooperative, No Acute Distress Eye Exam: Positive: PERRLA ENT Exam: Positive: Atraumatic, Pharynx Normal Neck Exam: Positive: +2 carotid pulse wo bruit Chest Exam: Positive: Clear to auscultation, Normal air movement Heart Exam: Positive: Rate Normal, Normal S1, Normal S2 Abdomen Exam: Positive: Normal bowel sounds, Tenderness (RUQ and Epigastric region to touch), Other (distended and moderately firm) Extremity Exam: Positive: Edema (BLE +1 pitting with TARI HOSE on BLE) Neuro Exam: Positive: Normal Speech, Cranial Nerves 3-12 NL Psych Exam: Positive: Mental status NL, Mood NL Vital Signs Vital Signs Date Time Temp Pulse Resp B/P (MAP) Pulse Ox O2 Delivery O2 Flow Rate FiO2 04/14/21 18:21 81 98 Room Air 04/14/21 17:51 128/68 (88) 04/14/21 16:25 100.3 04/14/21 16:20 18 Laboratory Data Labs 24H Laboratory Tests 2 04/14/21 16:30: Urine Color YELLOW, Urine Appearance HAZY, Urine pH 5.0, Urine Specific [place] 1.022, Urine Protein 2+H, Urine Glucose (UA) 3+H, Urine Ketones TRACEH, Urine Blood 3+H, Urine Nitrite NEGATIVE, Urine Bilirubin NEGATIVE, Urine Urobilinogen 2.0H, Urine Leukocyte Esterase NEGATIVE, Urine WBC (Auto) 3, Urine RBC (Auto) 2, Urine Hyaline Casts (Auto) 0, Urine Bacteria (Auto) NEGATIVE, Urine Squamous Epithelial Cells 0, Urine Mucus (Auto) SMALL, Urine Sperm (Auto) 04/14/21 16:47: Immature Granulocyte % (Auto) 2.2, Neutrophils (%) (Auto) 78.6H, Lymphocytes (%) (Auto) 5.4L, Monocytes (%) (Auto) 11.9H, Eosinophils (%) (Auto) 1.6, Basophils (%) (Auto) 0.3, Neutrophils # (Auto) 11.7H, Lymphocytes # (Auto) 0.8L, Monocytes # (Auto) 1.8H, Eosinophils # (Auto) 0.2, Basophils # (Auto) 0.1, Nucleated Red Blood Cells % (auto) 0.0, Anion Gap 7L, Glomerular Filtration Rate 53.2, Calcium Level 8.0L, Magnesium Level 2.1, Total Bilirubin 0.5, Direct Bilirubin 0.2, Aspartate Amino Transf (AST/SGOT) 37, Alanine Aminotransferase (ALT/SGPT) 36, Alkaline Phosphatase 148H, Total Protein 5.9L, Albumin 2.4L, Albumin/Globulin Ratio 0.7, Amylase Level 26, Lipase 21L 04/14/21 16:58: POC Glucose (Misc Panel) 195H, POC Sodium (Misc Panel) 134L, POC Potassium (Misc Panel) 3.5, POC Chloride (Misc Panel) 100, POC Total CO2 (Misc Panel) 25.0, POC Blood Urea Nitrogen (Misc Panel 22, POC Ionized Calcium (Misc Panel) 4.4L, POC Creatinine (Misc Panel) 1.4H, POC Hematocrit (Misc Panel) 42.0 04/14/21 19:38: Coronavirus (COVID-19)(PCR) NEGATIVE, Influenza Type A (RT-PCR) NEGATIVE, Influenza Type B (RT-PCR) NEGATIVE, Respiratory Syncytial Virus (PCR) NEGATIVE CBC/BMP Laboratory Tests 04/14/21 16:47 Problems (1) Acute cholecystitis Status: Acute Problem Specific Plan: Monitor Clinically, Repeat Labs Problem Text: Mr. Perez is a 75 year-old elderly male who is admitted to [facility] for Acute Cholecystitis with FRANKIE and mild Hyponatremia. Plan Admit Observation on telemetry NPO now excepts for medications IVF NS at 100 ml/hr & IV antibiotics Zosyn 3.35 mg q 8 hours, Flagyl IV and Check AM labs and replace electrolyses as needed. Dr. Sarah will continue to follow patient Pain Management Fall precaution Diabetes Mellitus type I with Diabetic Peripheral Neuropathy-Chronic A!c check POC glucose q 6 hours while NPO; then switch to qAC &HS once patient is eating diabetic and cardiac diet Initiate hypoglycemia protocol per [facility] policy SS Insulin q 6 hours Essential Hypertension-Chronic Continue home medications, when no longer NPO. Monitor BP q shift and prn MERRILL-Chronic Place on continuous pulse oximetry CPAP settings 4 Respiratory therapy Elevate HOB 30-45 degrees Chronic low back pain-Chronic Fall precautions OOB with assistance if needed, activity as tolerated Lidocaine patch lower back daily as needed PPI Prophylaxis: not needed DVT Prophylaxis: Lovenox 40 mg SQ daily and SCDS with TARI FORD BLE Discharge: pending clinical course (2) FRANKIE (acute kidney injury) Status: Acute Problem Specific Plan: Monitor Clinically, Repeat Labs (3) Diabetes mellitus treated with insulin Status: Chronic Problem Specific Plan: Monitor Clinically, Repeat Labs Plan / VTE VTE Prophylaxis Ordered?: Yes VTE Exclusion Mechanical Proph: N/A:VTE Prophy Ordered VTE Exclusion Pharmacological: N/A:VTE Prophy Ordered SKIP KENNEY Apr 14, 2021 21:28
[2021-04-15] MEDS ORDERED: PIPERACILLIN/TAZOBACTAM SOD 3.375 GM in D5W MINI-BAG PLUS 50 ML IV SCH (04:00)
[2021-04-15] MEDS ORDERED: ENOXAPARIN 40MG/0.4ML SYRINGE (J1650 PER 10MG) SC SCH (09:00)
== END 2021-04-14 21:45 | disposition left against medical advice (07) | DRG 445 ==
LOC: EDBD 15:57 → M ED 15:57 → M ED INP 20:27
PROVIDERS: ADMIT Family Medicine; ATTEND Family Medicine
DX: K81.0 Acute cholecystitis (principal); N17.9 Acute kidney failure, unspecified; E11.51 Type 2 diabetes mellitus with diabetic peripheral angiopathy without gangrene; G47.33 Obstructive sleep apnea (adult) (pediatric); G25.81 Restless legs syndrome; E78.5 Hyperlipidemia, unspecified; I10 Essential (primary) hypertension; Z79.82 Long term (current) use of aspirin; Z79.899 Other long term (current) drug therapy; Z91.013 Allergy to seafood; Z88.8 Allergy status to other drugs, medicaments and biological substances

== ENCOUNTER → 2021-04-14 | Outpatient (REF) | payer MEDICARE, BC, OTHER | LOC: M SFHCADAM 12:31 | PROVIDERS: ATTEND Physician Assistant | DX: R31.29 Other microscopic hematuria (principal) ==

== ENCOUNTER → 2021-05-11 | Outpatient (REF) | payer MEDICARE, OTHER ==
[2021-05-11 13:12] LABS: HEMATOCRIT 42.1 % (42.0-52.0); HEMOGLOBIN 13.1 g/dl (13.5-17.5); MEAN CORPUSCULAR HEMOGLOBIN 29.5 pg (27.0-33.0); MEAN CORPUSCULAR HGB CONC 31.1 g/dl (32.0-36.5); MEAN CORPUSCULAR VOLUME 94.8 fl (80.0-96.0); PLATELET COUNT, AUTOMATED 289 10^3/uL (150-450); RED BLOOD COUNT 4.44 10^6/uL (4.30-6.10); WHITE BLOOD COUNT 9.1 10^3/uL (4.0-10.0)
[2021-05-11 13:24] LABS: ALBUMIN 3.2 GM/DL (3.2-5.2); BILIRUBIN,TOTAL 0.3 MG/DL (0.2-1.0); CALCIUM LEVEL 8.8 MG/DL (8.8-10.2); CHOLESTEROL RISK RATIO 3.808 (<5); CREATININE FOR GFR 1.32 MG/DL (0.70-1.30); GLOMERULAR FILTRATION RATE 56.4 (>42); POTASSIUM SERUM 4.8 MEQ/L (3.5-5.1); TOTAL PROTEIN 7.6 GM/DL (6.4-8.2)
[2021-05-11 13:39] LABS: HEMOGLOBIN A1c 8.4 %
[2021-05-11 13:48] LABS: CREATININE, URINE 43.4 MG/DL; MAU/CREAT RATIO 135.9 MCG/MG (0.0-30.0)
== END ==
LOC: M SFHCADAM 09:52
PROVIDERS: ATTEND Family Medicine
DX: G47.33 Obstructive sleep apnea (adult) (pediatric) (principal); E11.628 Type 2 diabetes mellitus with other skin complications; E78.5 Hyperlipidemia, unspecified

== ENCOUNTER → 2021-08-11 | Outpatient (REF) | payer MEDICARE, OTHER ==
[2021-08-11 12:45] LABS: HEMATOCRIT 47.3 % (42.0-52.0); HEMOGLOBIN 15.4 g/dl (13.5-17.5); MEAN CORPUSCULAR HEMOGLOBIN 30.6 pg (27.0-33.0); MEAN CORPUSCULAR HGB CONC 32.6 g/dl (32.0-36.5); MEAN CORPUSCULAR VOLUME 93.8 fl (80.0-96.0); PLATELET COUNT, AUTOMATED 190 10^3/uL (150-450); RED BLOOD COUNT 5.04 10^6/uL (4.30-6.10); WHITE BLOOD COUNT 6.6 10^3/uL (4.0-10.0)
[2021-08-11 13:03] LABS: HEMOGLOBIN A1c 7.4 %
[2021-08-11 13:20] LABS: ALBUMIN 3.9 GM/DL (3.2-5.2); ALT/SGPT 37 U/L (12-78); BILIRUBIN,TOTAL 0.2 MG/DL (0.2-1.0); BLOOD UREA NITROGEN 25 MG/DL (7-18); CALCIUM LEVEL 9.3 MG/DL (8.8-10.2); CARBON DIOXIDE LEVEL 27 MEQ/L (21-32); CHLORIDE LEVEL 104 MEQ/L (98-107); CHOLESTEROL LEVEL 181 MG/DL (<200); CHOLESTEROL RISK RATIO 3.693 (<5); CREATININE FOR GFR 1.48 MG/DL (0.70-1.30); FREE T4 0.72 NG/DL (0.76-1.46); GLOMERULAR FILTRATION RATE 49.5 (>42); GLUCOSE, FASTING 299 MG/DL (70-100); HDL CHOLESTEROL 49 MG/DL (>40); LDL CHOLESTEROL 91 MG/DL (<100); NON-HDL-C 132 MG/DL; POTASSIUM SERUM 4.4 MEQ/L (3.5-5.1); SODIUM LEVEL 140 MEQ/L (136-145); TOTAL PROTEIN 7.3 GM/DL (6.4-8.2); TRIGLYCERIDES LEVEL 206 MG/DL (<150); VITAMIN B12 LEVEL > 2000 PG/ML (247-911)
== END ==
LOC: M SFHCADAM 09:46
PROVIDERS: ATTEND Family Medicine
DX: E11.628 Type 2 diabetes mellitus with other skin complications (principal); E78.5 Hyperlipidemia, unspecified; G63 Polyneuropathy in diseases classified elsewhere; G47.33 Obstructive sleep apnea (adult) (pediatric)
CPT/HCPCS: 80053; 80061; 82607; 82746; 83036; 84439; 84443; 85027; 90682; G0008; G0463

== ENCOUNTER → 2021-11-04 | Outpatient (REF) | payer MEDICARE, OTHER ==
[2021-11-04 13:47] LABS: CREATININE FOR GFR 1.35 MG/DL (0.70-1.30)
== END ==
LOC: M LABDRWAD 12:37
PROVIDERS: ATTEND Orthopaedic Surgery
DX: M48.061 Spinal stenosis, lumbar region without neurogenic claudication (principal); M54.50 Low back pain, unspecified

== ENCOUNTER → 2021-11-04 | Outpatient (REF) | payer MEDICARE, OTHER ==
[2021-11-04 13:28] LABS: HEMOGLOBIN A1c 7.5 %
[2021-11-04 13:41] LABS: CALCIUM LEVEL 8.9 MG/DL (8.8-10.2); CREATININE FOR GFR 1.37 MG/DL (0.70-1.30); GLOMERULAR FILTRATION RATE 54.1 (>42); POTASSIUM SERUM 4.1 MEQ/L (3.5-5.1)
== END ==
LOC: M SFHCADAM 10:09
PROVIDERS: ATTEND Family Medicine
DX: E11.628 Type 2 diabetes mellitus with other skin complications (principal); M48.061 Spinal stenosis, lumbar region without neurogenic claudication; M54.50 Low back pain, unspecified
CPT/HCPCS: 80048; 82565; 83036; 84520; G0463

== ENCOUNTER → 2022-02-02 | Outpatient (REF) | payer MEDICARE, OTHER ==
[2022-02-02 13:07] LABS: HEMATOCRIT 47.8 % (42.0-52.0); HEMOGLOBIN 16.2 g/dl (13.5-17.5); MEAN CORPUSCULAR HEMOGLOBIN 30.8 pg (27.0-33.0); MEAN CORPUSCULAR HGB CONC 33.9 g/dl (32.0-36.5); MEAN CORPUSCULAR VOLUME 90.9 fl (80.0-96.0); PLATELET COUNT, AUTOMATED 208 10^3/uL (150-450); RED BLOOD COUNT 5.26 10^6/uL (4.30-6.10); WHITE BLOOD COUNT 6.7 10^3/uL (4.0-10.0)
[2022-02-02 13:34] LABS: ALBUMIN 4.4 GM/DL (3.2-5.2); BILIRUBIN,TOTAL 0.5 MG/DL (0.2-1.0); CALCIUM LEVEL 9.6 MG/DL (8.8-10.2); CHOLESTEROL RISK RATIO 2.95 (<5); CREATININE FOR GFR 1.56 MG/DL (0.70-1.30); GLOMERULAR FILTRATION RATE 46.4 (>42); POTASSIUM SERUM 4.3 MEQ/L (3.5-5.1); TOTAL PROTEIN 7.8 GM/DL (6.4-8.2)
[2022-02-02 14:45] LABS: HEMOGLOBIN A1c 7.2 %
== END ==
LOC: M SFHCADAM 09:15
PROVIDERS: ATTEND Family Medicine
DX: E11.628 Type 2 diabetes mellitus with other skin complications (principal); E78.5 Hyperlipidemia, unspecified; G47.33 Obstructive sleep apnea (adult) (pediatric)

== ENCOUNTER → 2022-05-18 | Outpatient (REF) | payer MEDICARE, OTHER ==
[2022-05-18 13:46] LABS: CALCIUM LEVEL 9.5 MG/DL (8.8-10.2); CREATININE FOR GFR 1.52 MG/DL (0.70-1.30); GLOMERULAR FILTRATION RATE 47.8 (>42); POTASSIUM SERUM 4.1 MEQ/L (3.5-5.1)
== END ==
LOC: M SFHCADAM 08:19
PROVIDERS: ATTEND Family Medicine
DX: E11.628 Type 2 diabetes mellitus with other skin complications (principal)

== ENCOUNTER → 2022-08-05 | Outpatient (CLI) | payer MEDICARE, OTHER ==
[~2022-08-05] MED LIST changes: +GASTROGRAFIN SOLUTION 30ML (Q9963) As Ordered ONE; +ISOVUE-370 76% 100ML VIAL As Ordered ONE
== END ==
LOC: M RAD 08:10
PROVIDERS: ATTEND Physician Assistant
DX: R10.33 Periumbilical pain (principal); R11.2 Nausea with vomiting, unspecified
CPT/HCPCS: 74177; 87086; Q9963; Q9967

== ENCOUNTER → 2022-08-09 | Outpatient (CLI) | payer MEDICARE, OTHER ==
[~2022-08-09] MED LIST changes: -GASTROGRAFIN SOLUTION 30ML (Q9963) As Ordered ONE; -ISOVUE-370 76% 100ML VIAL As Ordered ONE
[2022-08-09 10:54] LABS: BASO # 0.1 10^3/uL (0.0-0.2); BASO % 0.9 % (0.0-1.0); EOS # 0.6 10^3/uL (0.0-0.5); EOS % 7.1 % (0.0-3.0); HEMATOCRIT 44.5 % (42.0-52.0); HEMOGLOBIN 14.9 g/dl (13.5-17.5); LYMPH % 12.7 % (24.0-44.0); MEAN CORPUSCULAR HEMOGLOBIN 31.2 pg (27.0-33.0); MEAN CORPUSCULAR HGB CONC 33.5 g/dl (32.0-36.5); MEAN CORPUSCULAR VOLUME 93.1 fl (80.0-96.0); MONO # 0.6 10^3/uL (0.0-0.8); MONO % 7.6 % (2.0-8.0); NEUTROPHILS # 5.5 10^3/uL (1.5-8.5); NEUTROPHILS % 71.4 % (36.0-66.0); PLATELET COUNT, AUTOMATED 215 10^3/uL (150-450); RED BLOOD COUNT 4.78 10^6/uL (4.30-6.10); WHITE BLOOD COUNT 7.7 10^3/uL (4.0-10.0)
[2022-08-09 11:32] LABS: ALBUMIN 3.4 GM/DL (3.2-5.2); BILIRUBIN,TOTAL 0.3 MG/DL (0.2-1.0); CALCIUM LEVEL 8.9 MG/DL (8.8-10.2); CREATININE FOR GFR 1.45 MG/DL (0.70-1.30); GLOMERULAR FILTRATION RATE 50.5 (>42); POTASSIUM SERUM 4.5 MEQ/L (3.5-5.1); TOTAL PROTEIN 7.2 GM/DL (6.4-8.2)
== END ==
LOC: M WUC 09:29
PROVIDERS: ATTEND Physician Assistant
DX: R10.33 Periumbilical pain (principal); R11.2 Nausea with vomiting, unspecified

== ENCOUNTER → 2022-09-14 | Outpatient (REF) | payer MEDICARE, OTHER ==
[2022-09-14 19:09] LABS: HEMOGLOBIN A1c 8.5 %
[2022-09-14 20:14] LABS: ALBUMIN 3.4 GM/DL (3.2-5.2); BILIRUBIN,TOTAL 0.3 MG/DL (0.2-1.0); CALCIUM LEVEL 8.9 MG/DL (8.8-10.2); CHOLESTEROL RISK RATIO 2.64 (<5); CREATININE FOR GFR 1.4 MG/DL (0.70-1.30); FREE T4 0.8 NG/DL (0.76-1.46); GLOMERULAR FILTRATION RATE 52.6 (>42); MAU/CREAT RATIO 225.6 MCG/MG (0.0-30.0); PERCENT SATURATION 12.6 % (19.7-50.0); POTASSIUM SERUM 4.1 MEQ/L (3.5-5.1); THYROID STIMULATING HORMONE 2.09 uIU/ML (0.358-3.740); TOTAL PROTEIN 6.9 GM/DL (6.4-8.2)
[2022-09-14 21:02] LABS: FOLATE 11.4 NG/ML
== END ==
LOC: M LAB REF 17:07
PROVIDERS: ATTEND Family Medicine
DX: G62.9 Polyneuropathy, unspecified (principal); Z98.84 Bariatric surgery status; E78.5 Hyperlipidemia, unspecified; D50.9 Iron deficiency anemia, unspecified; Z12.5 Encounter for screening for malignant neoplasm of prostate
CPT/HCPCS: 80053; 80061; 82043; 82607; 82728; 82746; 83036; 83550; 84439; 84443; G0103

== ENCOUNTER → 2022-09-20 | Outpatient (POV) | payer MEDICARE, BC, OTHER ==
[~2022-09-20] VITALS: Ht 180.3 cm; Wt 112.2 kg
[2022-09-20 14:05] VITALS: BP 177/90
== END ==
LOC: M IRPOV 13:55
PROVIDERS: ATTEND Radiology Diagnostic Radiology
DX: N28.1 Cyst of kidney, acquired (principal); E11.9 Type 2 diabetes mellitus without complications; Z79.4 Long term (current) use of insulin; Z79.82 Long term (current) use of aspirin; Z79.84 Long term (current) use of oral hypoglycemic drugs; Z79.899 Other long term (current) drug therapy; Z91.013 Allergy to seafood; Z91.048 Other nonmedicinal substance allergy status; Z98.84 Bariatric surgery status

== ENCOUNTER → 2022-10-18 | Outpatient (CLI) | payer MEDICARE, BC, OTHER ==
[~2022-10-18] MED LIST changes: +FARX1TAB3 PO; +INSUH10VL SC; +LIDOCAINE 1% MDV 20ML VIAL As Ordered ONE
[2022-10-18 13:55] VITALS: BP 152/87
== END ==
LOC: M IRPRO 12:26
PROVIDERS: ATTEND Internal Medicine Nephrology
DX: N28.1 Cyst of kidney, acquired (principal)

== ENCOUNTER → 2023-01-16 | Outpatient (CLI) | payer MEDICARE, BC, OTHER ==
[~2023-01-16] MED LIST changes: -LIDOCAINE 1% MDV 20ML VIAL As Ordered ONE
[2023-01-16 12:24] LABS: CALCIUM LEVEL 8.5 MG/DL (8.3-10.6); CREATININE FOR GFR 1.3 MG/DL (0.70-1.30); GLOMERULAR FILTRATION RATE 57.1 (>42); POTASSIUM SERUM 4.4 MMOL/L (3.5-5.1)
[2023-01-16 13:31] LABS: HEMOGLOBIN A1c 8.2 % (4.0-6.0)
== END ==
LOC: M WUC 09:44
PROVIDERS: ATTEND Family Medicine
DX: E11.628 Type 2 diabetes mellitus with other skin complications (principal)

== ENCOUNTER → 2023-01-30 | Outpatient (CLI) | payer MEDICARE, BC, OTHER | LOC: M PLAIMG 10:16 | PROVIDERS: ATTEND Internal Medicine Nephrology | DX: N28.1 Cyst of kidney, acquired (principal); K57.30 Diverticulosis of large intestine without perforation or abscess without bleeding; Z98.84 Bariatric surgery status ==

== ENCOUNTER → 2023-01-31 | Outpatient (CLI) | payer MEDICARE, BC, OTHER | LOC: M ADAMS 11:48 | PROVIDERS: ATTEND Family Medicine | DX: S20.211A Contusion of right front wall of thorax, initial encounter (principal); W11.XXXA Fall on and from ladder, initial encounter; Y92.9 Unspecified place or not applicable; Y93.9 Activity, unspecified; Y99.9 Unspecified external cause status ==

== ENCOUNTER → 2023-11-22 | Outpatient (REF) | payer MEDICARE, OTHER ==
[2023-11-22 17:42] LABS: HEMATOCRIT 42.8 % (42.0-52.0); HEMOGLOBIN 13.8 g/dl (13.5-17.5); MEAN CORPUSCULAR HEMOGLOBIN 28.8 pg (27.0-33.0); MEAN CORPUSCULAR HGB CONC 32.2 g/dl (32.0-36.5); MEAN CORPUSCULAR VOLUME 89.2 fl (80.0-96.0); PLATELET COUNT, AUTOMATED 187 10^3/uL (150-450); WHITE BLOOD COUNT 6.8 10^3/uL (4.0-10.0)
[2023-11-22 17:59] LABS: HEMOGLOBIN A1c 6.6 % (4.0-6.0)
[2023-11-22 18:04] LABS: PSA SCREENING 0.5 NG/ML (< 4.00)
[2023-11-22 18:07] LABS: ALBUMIN 3.7 G/DL (3.2-5.2); BILIRUBIN,TOTAL 0.2 MG/DL (0.3-1.2); CALCIUM LEVEL 9.1 MG/DL (8.3-10.6); CHOLESTEROL RISK RATIO 2.78 (<5); CREATININE FOR GFR 1.38 MG/DL (0.70-1.30); GLOMERULAR FILTRATION RATE 53.3 (>42); HDL CHOLESTEROL 54.9 MG/DL (>40); LDL CHOLESTEROL 69.7 MG/DL (<100); NON-HDL-C 98.1 MG/DL; POTASSIUM SERUM 4.6 MMOL/L (3.5-5.1)
[2023-11-22 18:08] LABS: CREATININE, URINE 69.9 MG/DL
[2023-11-22 18:09] LABS: MAU/CREAT RATIO 92.9 MCG/MG (0.0-30.0)
== END ==
LOC: M SFHCADAM 10:47
PROVIDERS: ATTEND Family Medicine
DX: G47.33 Obstructive sleep apnea (adult) (pediatric) (principal); E11.628 Type 2 diabetes mellitus with other skin complications; Z12.5 Encounter for screening for malignant neoplasm of prostate; E78.5 Hyperlipidemia, unspecified
CPT/HCPCS: 80053; 80061; 82043; 83036; 85027; G0103

== ENCOUNTER → 2024-08-14 | Outpatient (REF) | payer MEDICARE, BC ==
[2024-08-14 18:26] LABS: HEMATOCRIT 43.7 % (42.0-52.0); HEMOGLOBIN 14.1 g/dl (13.5-17.5); MEAN CORPUSCULAR HEMOGLOBIN 29.2 pg (27.0-33.0); MEAN CORPUSCULAR HGB CONC 32.3 g/dl (32.0-36.5); MEAN CORPUSCULAR VOLUME 90.5 fl (80.0-96.0); PLATELET COUNT, AUTOMATED 212 10^3/uL (150-450); RED BLOOD COUNT 4.83 10^6/uL (4.30-6.10); WHITE BLOOD COUNT 6.8 10^3/uL (4.0-10.0)
[2024-08-14 18:50] LABS: URIC ACID 5.3 MG/DL (3.7-9.2)
[2024-08-14 18:52] LABS: FOLATE > 24.00 NG/ML (>5.4); TOTAL 25(OH) VITAMIN D 68.1 NG/ML (20.0-100.0)
[2024-08-14 18:54] LABS: FERRITIN 10.5 NG/ML (10.5-307.3)
[2024-08-14 18:55] LABS: HEMOGLOBIN A1c 6.1 % (4.0-6.0); VITAMIN B12 LEVEL 466 PG/ML (211-911)
[2024-08-14 18:56] LABS: ALBUMIN 3.8 G/DL (3.2-5.2); ALKALINE PHOSPHATASE 79 U/L (46-116); ALT/SGPT 27 U/L (7.0-40); AST/SGOT 18 U/L (<34); BILIRUBIN,TOTAL 0.6 MG/DL (0.3-1.2); BLOOD UREA NITROGEN 22 MG/DL (9-23); CALCIUM LEVEL 9.8 MG/DL (8.3-10.6); CARBON DIOXIDE LEVEL 25 MMOL/L (20-31); CHLORIDE LEVEL 109 MMOL/L (98-107); CHOLESTEROL LEVEL 142 MG/DL (<200); CHOLESTEROL RISK RATIO 2.33 (<5); CREATININE FOR GFR 1.45 MG/DL (0.70-1.30); GLOMERULAR FILTRATION RATE 50.2 (>42); GLUCOSE, FASTING 74 MG/DL (74-106); HDL CHOLESTEROL 60.8 MG/DL (>40); LDL CHOLESTEROL 66.4 MG/DL (<100); NON-HDL-C 81.2 MG/DL; POTASSIUM SERUM 4.1 MMOL/L (3.5-5.1); SODIUM LEVEL 138 MMOL/L (136-145); TRIGLYCERIDES LEVEL 74 MG/DL (<150)
== END ==
LOC: M SFHCADAM 11:50
PROVIDERS: ATTEND Family Medicine
DX: E78.5 Hyperlipidemia, unspecified (principal); G63 Polyneuropathy in diseases classified elsewhere; Z98.84 Bariatric surgery status; M25.50 Pain in unspecified joint; E11.628 Type 2 diabetes mellitus with other skin complications; Z79.899 Other long term (current) drug therapy

== ENCOUNTER → 2024-11-26 | Outpatient (CLI) | payer MEDICARE, BC | LOC: M SLEEP 20:00 | PROVIDERS: ATTEND Internal Medicine Pulmonary Disease | DX: G47.33 Obstructive sleep apnea (adult) (pediatric) (principal) ==

== ENCOUNTER 2025-11-07 13:01 | Emergency (ER) | payer MEDICARE, BC ==
[~2025-11-07] VITALS: Ht 180.3 cm; Wt 104.6 kg
[~2025-11-07 13:01] MED LIST changes: +CARB-19 PO; -CARB1TAB20 PO
[2025-11-07 14:28] VITALS: BP 165/93; TEMP 97; O2SAT 97
== END 2025-11-07 14:30 | disposition home or self-care (01) ==
LOC: M ED 13:01
DX: S49.91XA Unspecified injury of right shoulder and upper arm, initial encounter (principal); I10 Essential (primary) hypertension; E11.9 Type 2 diabetes mellitus without complications; Z98.84 Bariatric surgery status; W22.09XA Striking against other stationary object, initial encounter; Y92.89 Other specified places as the place of occurrence of the external cause; Y93.89 Activity, other specified; Y99.8 Other external cause status; Z91.013 Allergy to seafood; Z91.048 Other nonmedicinal substance allergy status; Z79.82 Long term (current) use of aspirin; Z79.84 Long term (current) use of oral hypoglycemic drugs; Z79.899 Other long term (current) drug therapy